=== PATIENT | male | born 1985 | race Hispanic/Latino ===

== ENCOUNTER 2017-09-23 06:36 | Inpatient (IN) | payer MEDICAID, OTHER ==
--- NOTE | 2017-09-23 07:07 | C.PDOC ---
History Of Present Illness 32 y/o male transferred to ED for psychiatric admission. pt c/o depression, reports recent dx of bipolar disorder, denies hi and si. denies any physical complaints. Time Seen by Provider: 09/23/17 06:57 Chief Complaint (Nursing): Psychiatric Evaluation History Per: Patient History/Exam Limitations: no limitations Onset/Duration Of Symptoms: Days Current Symptoms Are (Timing): Still Present Suicide/Self Injury Attempted (Context): None Past Medical History Reviewed: Historical Data, Nursing Documentation, Vital Signs Vital Signs: Last Vital Signs Temp 97.7 F 09/23/17 06:43 Pulse 69 09/23/17 06:43 Resp 14 09/23/17 06:43 BP 126/80 09/23/17 06:43 Pulse Ox 99 09/23/17 07:12 - Medical History PMH: Bipolar Disorder, Depression Surgical History: No Surg Hx Family History: States: Unknown Family Hx - Social History Hx Tobacco Use: No Hx Alcohol Use: No Hx Substance Use: Yes (has used heroin and crack) - Immunization History Hx Tetanus Toxoid Vaccination: Yes Hx Influenza Vaccination: No Hx Pneumococcal Vaccination: No Review Of Systems Constitutional: Negative for: Fever, Chills Respiratory: Negative for: Cough Gastrointestinal: Negative for: Abdominal Pain Skin: Negative for: Rash Neurological: Negative for: Weakness, Headache Psych: Positive for: Depression. Negative for: Suicidal ideation Physical Exam - Physical Exam Appears: Non-toxic, No Acute Distress Skin: Warm, Dry Head: Atraumatic, Normacephalic Neck: Supple Cardiovascular: Rhythm Regular, No Murmur Respiratory: No Decreased Breath Sounds, No Wheezing Gastrointestinal/Abdominal: Soft, No Tenderness, No Guarding, No Rebound Extremity: No Pedal Edema, No Calf Tenderness Neurological/Psych: Oriented x3, Normal Speech, Normal Cognition ED Course And Treatment O2 Sat by Pulse Oximetry: 99 Medical Decision Making Medical Decision Making: pt with depression for psychiatric admission. arrived in ed already medically cleared. Disposition Discussed With : Froylan Rowan Doctor Will See Patient In The: Hospital - Disposition Disposition: HOSPITALIZED Disposition Time: 07:10 Condition: STABLE - Clinical Impression Clinical Impression: Depression
--- NOTE | 2017-09-23 09:11 | PCM.BM ---
<Chelsey Le - Last Filed: 09/23/17 09:09> Treatment assets and liabiliti Patient Assests: cooperative, ADL independent, physically healthy, good support system, good past tx response, cognitively intact Patient Liabilities: financial problems, substance abuse <HarpalFroylan - Last Filed: 09/24/17 10:54> - Diagnosis (1) Bipolar 1 disorder, depressed, severe Status: Acute Interventions: 09/24/17 10:54 * Assess/adjust medications daily and /or as needed * See patient on an individual basis 7x/week to assess level of manic behaviors and stability * Discuss risks, benefits, side effects and alternatives of medications * <Birgit Ohara - Last Filed: 09/24/17 14:38> Family Contact Family involvement: Patient does not wish Family/SO involvement Family contact: Patient declines to allow family contact at present - Goals for Treatment Patient goals for treatment: " I want to return to [facility] in [place], [place]." Discharge/Continuing Care - Education Needs Education Needs: Patient Medication, Patient Diagnosis/Disease Process, Patient Coping Skills, Patient Placement options, Patient Community resources - Discharge Discharge Criteria: Free of Suicidal thoughts, Normal sleep pattern, Ability to care for self, No longer exhibiting s/s of withdrawal, Reduction of target symptoms Discharge to:: Home - Treatment Team Participation Discussed with Family/SO: No Was Patient/Family/SO present at Treatment Team Meeting: Yes
--- NOTE | 2017-09-23 10:07 | PCM.PSYCH ---
Initial Psychiatric Evaluation - Initial Psychiatric Evaluation Type of Admission: Voluntary Legal Status: Capacity Chief Complaint (in patient's own words): I was feeling depressed and suicidal.' History of Present Illness and Precipitating Events: Pt is a 32 years old CM, currently unemployed, transferred from [facility], due to depressed mood and suicidal ideation. He reports history of multiple inpatient psychiatric hospitalizations and reports history of followup with an IOP. He reports history of injecting 5-10 bags of heroin daily along with $30 worth cocaine, last abuse was on September 04. He reports history of one suicide attempt in the past, by OD in the past. Pt states he was diagnosed with Depressive Disorder. Patient states his depression increased due to being without meds for 3 days while in [facility]. He reports depressed mood and at times feelings of hopelessness and helplessness. He also reports sometimes symptoms such as poor appetite, no need for sleep, impulsive behavior and irritable mood. However he denies any auditory or visual hallucinations, or any paranoia. PMH: None reported Past Psychiatric History - Past Psychiatric History Previous Treatment History: Inpatient Pertinent Medical Hx (Current Medical&Sleep Prob, Allergies): Allergies Allergy/AdvReac Type Severity Reaction Status Date / Time No Known Allergies Allergy Unverified 09/23/17 06:48 Gabapentin 300 mg PO 09/23/17 Mirtazapine [Remeron] 15 mg PO 09/23/17 Quetiapine Fumarate [Seroquel] 200 mg PO 09/23/17 Sertraline HCl [Zoloft] 100 mg PO 09/23/17 Review of Systems - Review of Systems All systems: reviewed and no additional remarkable complaints except - Psychiatric Psychiatric: Anxiety, Hopelessness, Irritability, Suicidal Ideation. absent: Auditory Hallucinations, Mood Swings Mental Status Examination - Personal Presentation Personal Presentation: Looks stated age - Affect Affect: Constricted, Depressed - Motor Activity Motor Activity: Calm - Reliability in Providing Information Reliability in Providing Information: Fair - Speech Speech: Organized - Mood Mood: Depressed, Anxious - Formal Thought Process Formal Thought Process: No Impairment - Obsessions/Compulsions Obsessions: No Compulsions: No - Cognitive Functions Orientation: Person, Place, Situation, Time Sensorium: Alert Attention/Concentration: Attentive Abstract Thinking: [place] Estimate of Intelligence: Below average Judgement: Imparied, as evidence by: Poor judgement, Imparied, as evidence by: Lack of insight into illness - Risk Risk: Suicidal, Diminished functioning - Strength & Assets Inventory Strength & Assets Inventory: Family support - Limitations Limitations: Living alone DSM 5 DX - DSM 5 DSM 5 Diagnosis: Bipolar II disorder depressive severe without psychotic features Opiate use disorder severe in early remission Cocaine use disorder severe in early remission - Recommended/Plan of Treatment Treatment Recommendations and Plan of Treatment: Bipolar II disorder depressive severe without psychotic features CBT Psychoeducation Supportive therapy, group therapy Zoloft 100 mg by mouth daily Mirtazapine 15 mg PO QHS Seroquel 200 mg PO QHS Neurontin 300 mg PO TID Opiate use disorder severe in early remission Cocaine use disorder severe in early remission CBT Psychoeducation Supportive therapy, individual therapy Use [place] for abstinence - Smoking Cessation Smoking Cessation Initiated: No
[2017-09-24 06:20] VITALS: O2SAT 98
--- NOTE | 2017-09-25 12:50 | PCM.PYCHPN ---
Psychiatric Progress Note - Psychiatric Progress Note Patient seen today, length of contact: 16 min Patient Chief Complaint: I was feeling depressed.' Problems Identified/Issues Discussed: Patient seen and evaluated, chart reviewed and discussed with the nurse. Pt reports depressed mood, feelings of hopelessness and helplessness. Pt remained isolated and withdrawn, and confined to his room. He denies any AVH or any paranoia. Patient is compliant with medications and denies any side effects. Symptoms are improving but pt needs more time to stabilize. Support and psychoeducation given. Medication Change: Yes Medical Record Reviewed: Yes Mental Status Examination - Cognitive Function Orientation: Person, Place, Situation, Time Memory: Intact Attention: WNL Concentration: Poor Association: WNL Fund of Knowledge: Poor - Mood Mood: Depressed, Anxious - Affect Affect: Constricted, Depressed - Formal Thought Process Formal Thought Process: No Impairment - Suicidal Ideation Suicidal Ideation: No - Homicidal Ideation Homicidal Ideation: No Goal/Treatment Plan - Goal/Treatment Plan Need for Continued Stay: Severe depression anxiety, Severe functional impairment Progress Toward Problem(s) and Goals/Treatment Plan: Bipolar II disorder depressive severe without psychotic features CBT Psychoeducation Supportive therapy, group therapy Zoloft 100 mg by mouth daily Mirtazapine 15 mg PO QHS Seroquel 200 mg PO QHS Neurontin 300 mg PO TID Opiate use disorder severe in early remission Cocaine use disorder severe in early remission CBT Psychoeducation Supportive therapy, individual therapy Use [place] for abstinence - Smoking Cessation Smoking Cessation Initiated: No
--- NOTE | 2017-09-25 15:38 | PCM.PYCHPN ---
Psychiatric Progress Note - Psychiatric Progress Note Patient seen today, length of contact: 16 min Patient Chief Complaint: "I have no SI" Problems Identified/Issues Discussed: Pt was seen and evaluated. Chart reviewed. Nurse input received that pt's withdrawal symptoms are getting better. Pt stated that he has good sleep last night. improvement in his appetite. He reported improvement in his withdrawal symptoms. His depressive symptoms are getting better but, he needs more time to stable. He denied SI, HI, intent or plan. He contracted hospital for safety. Medication Change: No Medical Record Reviewed: Yes Mental Status Examination - Cognitive Function Orientation: Person, Place, Situation, Time Memory: Intact Attention: WNL Concentration: Poor Association: WNL Fund of Knowledge: Poor Decription of patient's judgement and insights: improving/improving - Mood Mood: Depressed, Anxious - Affect Affect: Constricted, Depressed - Speech Speech: Appropriate - Formal Thought Process Formal Thought Process: No Impairment - Suicidal Ideation Suicidal Ideation: No Plan: denied - Homicidal Ideation Homicidal Ideation: No Plan: denied Goal/Treatment Plan - Goal/Treatment Plan Need for Continued Stay: Severe depression anxiety, Severe functional impairment Progress Toward Problem(s) and Goals/Treatment Plan: Bipolar II disorder depressive severe without psychotic features CBT Psychoeducation Supportive therapy, group therapy Continue treatment as per primary team Opiate use disorder severe in early remission Cocaine use disorder severe in early remission CBT Psychoeducation Supportive therapy, individual therapy Use [place] for abstinence Estimated Date of D/C: 09/27/17 - Smoking Cessation Smoking Cessation Initiated: Yes
--- NOTE | 2017-09-26 14:17 | PCM.PYCHPN ---
Psychiatric Progress Note - Psychiatric Progress Note Patient seen today, length of contact: 16 min Patient Chief Complaint: "I have no SI" Problems Identified/Issues Discussed: Pt was seen and evaluated. Chart reviewed. Nurse input received that pt's withdrawal symptoms are getting better. Pt stated that he has good sleep last night. He reported improvement in his appetite. He reported improvement in his withdrawal symptoms. His depressive symptoms are getting better but, he needs more time to stabilized. He denied SI, HI, intent or plan. He contracted hospital for safety. Pt stated that he would like to f/u with [facility] program after discharge. Medication Change: No Medical Record Reviewed: Yes Mental Status Examination - Cognitive Function Orientation: Person, Place, Situation, Time Memory: Intact Attention: WNL Concentration: Poor Association: WNL Fund of Knowledge: Poor Decription of patient's judgement and insights: improving/improving - Mood Mood: Depressed, Anxious - Affect Affect: Constricted, Depressed - Speech Speech: Appropriate - Formal Thought Process Formal Thought Process: No Impairment Psychotic Thoughts and Behaviors: denied - Suicidal Ideation Suicidal Ideation: No Plan: denied - Homicidal Ideation Homicidal Ideation: No Plan: denied Goal/Treatment Plan - Goal/Treatment Plan Need for Continued Stay: Severe depression anxiety, Severe functional impairment Progress Toward Problem(s) and Goals/Treatment Plan: Bipolar II disorder depressive severe without psychotic features CBT Psychoeducation Supportive therapy, group therapy Continue treatment as per primary team Opiate use disorder severe in early remission Cocaine use disorder severe in early remission CBT Psychoeducation Supportive therapy, individual therapy Use [place] for abstinence Estimated Date of D/C: 09/27/17 - Smoking Cessation Smoking Cessation Initiated: Yes
[2017-09-27 06:04] VITALS: BP 119/73; PULSE 77; RESP 20; TEMP 98.7
--- NOTE | 2017-09-27 10:39 | PCM.PYCHDC ---
Mental Status Examination - Mental Status Examination Orientation: Person, Place, Situation, Time Memory: Intact Mood: Neutral Affect: Constricted Speech: Soft Attention: WNL Concentration: WNL Association: WNL Fund of Knowledge: WNL Formal Thought Process: No Impairment Description of patient's judgement and insight: good, fair Psychotic Thoughts and Behaviors: denies any AVH Suicidal Ideation: No Current Homicidal Ideation?: No Discharge Summary - Discharge Note Reason for Hospitalization: Pt is a 32 years old CM, currently unemployed, transferred from [facility], due to depressed mood and suicidal ideation. He reports history of multiple inpatient psychiatric hospitalizations and reports history of followup with an IOP. He reports history of injecting 5-10 bags of heroin daily along with $30 worth cocaine, last abuse was on September 04. He reports history of one suicide attempt in the past, by OD in the past. Pt states he was diagnosed with Depressive Disorder. Patient states his depression increased due to being without meds for 3 days while in [facility] Home. He reports depressed mood and at times feelings of hopelessness and helplessness. He also reports sometimes symptoms such as poor appetite, no need for sleep, impulsive behavior and irritable mood. However he denies any auditory or visual hallucinations, or any paranoia. Consultations:: List each consultation separately and include: 1. Reason for request. 2. Findings. 3. Follow-up Summary of Hospital Course include:: 1. Description of specific treatment plan utilized for patients during their course of treatmen. 2. Summarize the time- course for resolution of acute symptoms and/or regressed behaviors. 3. Describe issues identified and worked on during hospitalization. 4. Describe medication utilized. 5. Describe medical problems identified and treated. 6. Reassessment of suicide risk Summary of Hospital Course: Pt is a 32 years old CM, currently unemployed, transferred from [facility], due to depressed mood and suicidal ideation. He reports history of multiple inpatient psychiatric hospitalizations and reports history of followup with an IOP. He reports history of injecting 5-10 bags of heroin daily along with $30 worth cocaine, last abuse was on September 04. He reports history of one suicide attempt in the past, by OD in the past. Pt states he was diagnosed with Depressive Disorder. Patient states his depression increased due to being without meds for 3 days while in Nursing Home. He reports depressed mood and at times feelings of hopelessness and helplessness. He also reports sometimes symptoms such as poor appetite, no need for sleep, impulsive behavior and irritable mood. However he denies any auditory or visual hallucinations, or any paranoia. PMH: None reported - Diagnosis (1) Bipolar 1 disorder, depressed, severe Current Visit: Yes Status: Acute - Final Diagnosis (DSM 5) Condition upon Discharge: STABLE DSM 5: Bipolar II disorder depressive severe without psychotic features Opiate use disorder severe in early remission Cocaine use disorder severe in early remission Disposition: HOME/ ROUTINE Follow-up Treatment Plan: Bipolar II disorder depressive severe without psychotic features CBT Psychoeducation Supportive therapy, group therapy Zoloft 100 mg by mouth daily Mirtazapine 15 mg PO QHS Seroquel 200 mg PO QHS Neurontin 300 mg PO TID Opiate use disorder severe in early remission Cocaine use disorder severe in early remission CBT Psychoeducation Supportive therapy, individual therapy Use [place] for abstinence Prescriptions/Medication Reconciliation: Gabapentin [Neurontin] 300 mg PO BID #60 cap Mirtazapine [Remeron] 15 mg PO HS #30 tab Quetiapine Fumarate [Seroquel] 200 mg PO HS #30 tablet Sertraline HCl [Zoloft] 100 mg PO DAILY #30 tablet - Smoking Cessation Smoking Cessation Medication prescribed: No - Antipsychotic Medications Pt discharged on 2 or more routine antipsychotic medications: No
== END 2017-09-27 11:38 | disposition home or self-care (01) | DRG 430 ==
LOC: C.ER 06:36 → C.5E 07:10
PROVIDERS: ADMIT Psychiatry & Neurology Psychiatry; ATTEND Psychiatry & Neurology Psychiatry
PROC: GZ3ZZZZ Medication Management (ICD-10-PCS; principal; 2017-09-23)
PROC: HZ89ZZZ Medication Management for Substance Abuse Treatment, Other Replacement Medication (ICD-10-PCS; 2017-09-23)
PROC: GZHZZZZ Group Psychotherapy (ICD-10-PCS; 2017-09-23)
PROC: GZ56ZZZ Individual Psychotherapy, Supportive (ICD-10-PCS; 2017-09-23)
PROC: HZ46ZZZ Group Counseling for Substance Abuse Treatment, Psychoeducation (ICD-10-PCS; 2017-09-23)
PROC: HZ59ZZZ Individual Psychotherapy for Substance Abuse Treatment, Supportive (ICD-10-PCS; 2017-09-23)
DX: F31.81 Bipolar II disorder (principal); R45.851 Suicidal ideations; F11.21 Opioid dependence, in remission; F14.21 Cocaine dependence, in remission; Z91.5 Personal history of self-harm